=== PATIENT | female | born 1965 | race African-American/Black ===

== ENCOUNTER → 2022-02-15 | Outpatient (CLI) | payer OTHER ==
--- NOTE | 2022-02-15 14:27 | RAD ---
EXAM: XR KNEE 1-2 VIEWS 02/15/2022 9:18 AM CLINICAL INDICATION: Disability determination COMPARISON: None TECHNIQUE: AP and lateral views of the right left FINDINGS: Left knee: No acute fracture. Alignment is normal. Joint spaces are maintained. There is chondrocalci nosis in the lateral compartment. There are small compartment of osteophytes. No joint effusion. Right knee: Suboptimal positioning on AP view. There is a unicompartmental prosthesis in the lateral compartment. No definite evidence of loosening. There are small patellofemoral and medial compartment osteophytes. No joint effusion. IMPRESSION: 1. Mild tricompartmental degenerative joint disease of the left knee. 2. Unicompartmental prosthesis in the lateral compartment of the right knee. This is suboptimally sheree luated due to positioning on AP view but no obvious evidence of loosening. 3. Mild degenerative joint disease in the medial and patellofemoral compartment of the right knee. Electronically signed by: Silvia Mendoza MD (02/15/2022 2:25 PM) [id number]
== END ==
LOC: RAD 09:01
PROVIDERS: ATTEND Anesthesiology Pain Medicine
DX: Z02.71 Encounter for disability determination (principal); M17.0 Bilateral primary osteoarthritis of knee; M11.262 Other chondrocalcinosis, left knee; M25.761 Osteophyte, right knee; M25.762 Osteophyte, left knee; Z96.651 Presence of right artificial knee joint
CPT/HCPCS: 73560-50